=== PATIENT | male | born 1975 | race Two or more races ===

== ENCOUNTER 2017-06-26 08:25 | Day surgery (SDC) | payer BC ==
[~2017-06-26] VITALS: Ht 180.3 cm; Wt 65.8 kg
[2017-06-26] VITALS (9 sets, daily range): BP systolic 109–126; BP diastolic 69–87
--- NOTE | 2017-06-26 06:14 | Anethesia Preoperative Eval ---
Anesthesia Pre-op PMH/ROS General Date of Evaluation: Jun 26, 2017 Time of Evaluation: 06:14 Anesthesiologist: emely ASA Score: ASA 3 Mallampati Score Class I : Soft palate, uvula, fauces, pillars visible Class II: Soft palate, uvula, fauces visible Class III: Soft palate, base of uvula visible Class IV: Only hard plate visible Mallampati Classification: Class II Surgeon: gwendolyn Diagnosis: esophageal mass Surgical Procedure: eus Anesthesia History: none Social History: smoking - nonsmoker Family History: no anesthesia problems Allergies: Coded Allergies: No Known Allergies (Unverified , 06/25/17) Medications: see eMAR Anesthesia Pre-op Phys. Exam Physician Exam Constitutional: NAD Neurologic: CN 2-12 intact Cardiovascular: RRR Respiratory: CTA Gastrointestinal: S/NT/ND Airway Exam Mallampati Score: Class II MO: full Neck: supple TMD: 2fb ROM: full Teeth: intact Anesthesia Pre-op A/P Risk Assessment & Plan Assessment: asa3 Plan: mac Status Change Before Surgery: No Pre-Antibiotics Drug: MARC Goldstein Jun 26, 2017 06:14
[2017-06-26] MEDS ORDERED: NS Irrig 1000ml ONE (08:26)
[2017-06-26] MEDS ORDERED: Lidocaine 1% MPF 10mg/ml 5ml ONE (08:26)
[2017-06-26] MEDS ORDERED: Propofol 10mg/ml 20ml IV ONE (08:26)
[2017-06-26] MEDS ORDERED: NKM (09:13)
--- NOTE | 2017-06-26 10:13 | Pre-Procedure Note/Attestation ---
Pre-Procedure Note/Attestation Complete Prior to Procedure Planned Procedure: not applicable Procedure Narrative: egd/eus Indications for Procedure Pre-Operative Diagnosis: esophageal cancer Attestation I attest that I discussed the nature of the procedure; its benefits; risks and complications; and alternatives (and the risks and benefits of such alternatives ), prior to the procedure, with the patient (or the patient's legal sales account representative). I attest that, if there was a reasonable possibility of needing a blood transfusion, the patient (or the patient's legal sales account representative) was given the [facility] standardized written summary, pursuant to the Joseph Dion Blood Safety Act ([place] Health and Safety Code # 1645, as amended). I attest that I re-evaluated the patient just prior to the surgery and that there has been no change in the patient's H&P, except as documented below: DELPHINE COHEN Jun 26, 2017 10:13
--- NOTE | 2017-06-26 10:15 | Short Stay Surgery H&P ---
History of Present Illness History of Present Illness Chief Complaint esoph cancer HPI Fermín Hutton is a 42 year old male who was admitted on for Esophagio Mass Patient History Allergies: Coded Allergies: No Known Allergies (Unverified , 06/25/17) PAST MEDICAL HISTORY: (1) Dysphagia (2) Weight loss Past Surgeries: Social History: Medication History Scheduled No Known Medications* (NKM - No Known Medications*), 0 ., (Reported) Review of Systems Cardiovascular: Reports: no symptoms Respiratory: Reports: no symptoms Skeletal: Reports: no symptoms Gastrointestinal: Reports: other Genitourinary: Reports: no symptoms Neurologic: Reports: no symptoms Endocrine: Reports: no symptoms Hematologic: Reports: no symptoms Physical Exam Vital Signs Last Vital Signs Date Time Temp Pulse Resp B/P Pulse Ox O2 Delivery O2 Flow Rate FiO2 06/26/17 09:12 98.6 76 18 109/69 97 Room Air Skin: normal HENT: normal Heart: normal Lungs: normal Abdomen: normal Extremities: normal Plan Plan of Care egd/eus Final Diagnosis: Attestation Are the patient's medical conditions optimized for surgery? Attestation Response: yes DELPHINE COHEN Jun 26, 2017 10:15
--- NOTE | 2017-06-26 11:00 | Endoscopy Procedure Note ---
Endoscopy Procedure Note Indication for Procedure: esoph cancer Procedures Performed: EGD, other - EUS Operative Findings/Diagnosis: same Specimen: none Pt Tolerated Procedure Well: Yes Estimated Blood Loss: none Anesthesiologist: con luna Anesthesia: MAC Implant(s) used?: No 50 yrs or older w/o bx or poly: Not Applicable 10yrs. F/U not recommended: Not Applicable DELPHINE COHEN Jun 26, 2017 11:00
--- NOTE | 2017-06-26 11:03 | Immediate Post-Op Evaluation ---
Immediate Post-Op Evalulation Immediate Post-Op Evalulation Procedure: eus Date of Evaluation: Jun 26, 2017 Time of Evaluation: 11:03 IV Fluids: 0.9ns 500ml Blood Products: none Estimated Blood Loss: negligible Blood Pressure Systolic: 126 Blood Pressure Diastolic: 80 Pulse Rate: 69 Respiratory Rate: 18 O2 Sat by Pulse Oximetry: 100 Temperature (Fahrenheit): 98.3 Pain Score (1-10): 0 Nausea: No Vomiting: No Complications none Patient Status: awake, reacts, patent Hydration Status: adequate Drug: MARC Goldstein Jun 26, 2017 11:03
--- NOTE | 2017-06-26 11:05 | 48 Hour Post Anesthesia Eval ---
Post Anesthesia Evaluation Procedure: eus Date of Evaluation: Jun 26, 2017 Time of Evaluation: 11:05 Blood Pressure Systolic: 126 0: 80 Pulse Rate: 89 Respiratory Rate: 18 Temperature (Fahrenheit): 98.3 O2 Sat by Pulse Oximetry: 100 Airway: patent Nausea: No Vomiting: No Pain Intensity: 0 Hydration Status: adequate Cardiopulmonary Status: stable Mental Status/LOC: patient returned to baseline Post-Anesthesia Complications: none Follow-up care needed: N/A MARC MALIK Jun 26, 2017 11:05
[2017-06-26] MEDS ORDERED: DiphenhydrAMINE 50mg/ml Inj IVP PRN (11:15)
[2017-06-26] MEDS ORDERED: Atropine Inj 1mg/10ml Syr IV PRN (11:15)
[2017-06-26] MEDS ORDERED: Midazolam 2mg/2ml Inj IVP PRN (11:15)
[2017-06-26] MEDS ORDERED: Hydromorphone 0.5mg/0.5ml inj IVP PRN (11:15)
--- NOTE | 2017-06-26 21:00 | Procedure Note ---
DATE OF PROCEDURE: 06/26/2017 SURGEON: Alejandro Toledo M.D. PROCEDURE: Upper endoscopy and also endoscopic ultrasound. ANESTHESIOLOGIST: Yessenia Chen M.D. INSTRUMENT: Olympus adult flexible upper endoscope and EUS scope. INDICATION: Esophageal cancer. REASON FOR PROCEDURE: The procedure, risks, benefits, and possible consequences, including hemorrhage, aspiration, perforation and infection, and alternative treatments, were explained to the patient/legal guardian by Dr. Alejandro Toledo and the patient/legal guardian understood and accepted these risks. PROCEDURE: After informed consent was obtained and the patient was adequately sedated, Olympus upper endoscope was advanced from mouth into second portion of duodenum and retroflexion performed in the stomach. The patient has some retained food material in the stomach. Examination of the stomach for that reason was limited. The patient had evidence of tumor starting at about 35 cm from the incisors, advancing all the way into the GE junction around 40 cm from the incisors. We were able to pass the scope through. The patient already had a diagnosis of cancer so no biopsy at this time was performed. At this time, the upper endoscope was retrieved and EUS radial scope was introduced. We were able to pass the scope all the way into the stomach. Examining celiac axis showed evidence of about 1.4 centimeter celiac axis lymph node. Then we started scanning this tumor and this tumor is very advanced, it involves all layers of the esophageal wall. It definitely breaks through muscularis propria level and the surrounding fat tissue so at least T3, in one area there is a questionable right close to the GE junction invading one of the veins in that area, I am not sure exactly which vein but there is involvement of the vessel most probably a vein in that area. There is no obvious lymph node in the esophagus but the only lymph node we saw was in the celiac axis area. As I mentioned, the tumor is very advanced and based on the EUS criteria this is most probably T4 given involves one of the vessel T4 and N1. The patient tolerated procedure very well without complication. SUMMARY OF FINDINGS: Very advanced esophageal tumor starting at about 35 cm from the incisors, advanced into the GE junction around 40 with involvement of the surrounding fat and vessel making this tumor T4 with N1. RECOMMENDATIONS: I discussed with Dr. Mix. PLAN: For this patient is to get a photodynamic therapy, chemoradiation, and possible esophagectomy. Alejandro Toledo M.D. DR: Preston JOB#: [id number] CC: ; Fax#: [phone]
== END 2017-06-26 12:10 | disposition home or self-care (01) ==
LOC: GAS 08:25
DX: C15.9 Malignant neoplasm of esophagus, unspecified (principal); R13.10 Dysphagia, unspecified; R63.4 Abnormal weight loss
CPT/HCPCS: 43237; J2704; 94003; 94150